=== PATIENT | male | born 1950 | race Caucasian/White ===

== ENCOUNTER 2017-02-27 03:21 | Emergency (ER) | payer MEDICARE, OTHER ==
[2017-02-27] MEDS ORDERED: Lidocaine 2% 20ml Vial ONE (03:42)
[2017-02-27] MEDS: Lidocaine 2% 20ml Vial IP ONE (03:50)
[2017-02-27] MEDS: DIPH,PERTUSS(ACELL),TET VAC/PF 0.5 ML DISP.SYRIN IM ONE (04:10)
--- NOTE | 2017-02-27 04:45 | ED Physician Documentation ---
General Adult - HISTORIAN Historian: patient - HPI Stated Complaint: R GREAT TOE INJ Chief Complaint: Laceration/Recheck/Suture Additional Information: Walking, stubbed toe, then realized bedsheets were bloody and could not stop bleeding with bandages. Onset: hours (1) Timing: still present Severity: moderate Modifying Factors: bleeding Context: walking, kicked box Quality: moderate bleeding Location: cuticle/nail base Further Comments: no Last known Well Code/Unknown Code: Unknown - ROS CONST: no problems EYES/ENT: none CVS/RESP: none GI/: none MS/SKIN/LYMPH: other (minimal pain right great toe secondary to diabetic neuropathy) NEURO/PSYCH: denies: headache, fainting, dizziness, tingling, numbness, difficulty walking, difficulty with speech, anxiety, depression - PAST HX Past History: other (cad) Other History: diabetes Type 2 Surgeries/Procedures: cardiac stent, other (ortho) Immunizations: tetanus Allergies/Adverse Reactions: Allergies Allergy/AdvReac Type Severity Reaction Status Date / Time No Known Allergies Allergy Verified 02/27/17 04:06 Home Medications: Ambulatory Orders Medication Instructions Recorded Insulin Aspart [Novolog] 10 unit SQ DIRECTED 03/21/14 Insulin Glargine,Hum.rec.anlog 35 unit SQ HS 03/21/14 [Lantus] Ascorbic Acid [Vitamin C] 500 mg PO D 02/27/17 Cholecalciferol [Vitamin D-3] 1,000 unit PO DAILY 02/27/17 Clopidogrel Bisulfate [Clopidogrel] 75 mg PO D 02/27/17 Gabapentin [Neurontin] 300 mg PO TID 02/27/17 Garlic 1 each PO D 02/27/17 Metformin HCl [Glucophage] 1,[place] [address] 02/27/17 Multivitamin [Tab-A-Yordan] 1 each PO DAILY 02/27/17 - SOCIAL HX Smoking History: non-smoker Alcohol Use: occasionally Drug Use: none - FAMILY HX Family History: Yes (noncontributory) - VITAL SIGNS Vital Signs: Vital Signs Temp Pulse Resp BP Pulse Ox 98.3 F 83 18 125/58 94 02/27/17 03:21 02/27/17 03:21 02/27/17 03:21 02/27/17 03:21 02/27/17 03:21 - REVIEWED ASSESSMENTS Nursing Assessment Reviewed: Yes Vitals Reviewed: Yes Procedures Wound Location: other (right great toe) Wound Length: 2.5 cm Wound's Depth, Shape: into muscle, linear Wound Explored: no foreign body removed Irrigated w/ Saline (ccs): 1,000 Betadine Prep?: No (surgical soap prep) Anesthesia: 2% Lidocaine, Other (nerve block 6 cc of 2% lidocaine to each side of toe with 25 G needle) Volume of Anesthetic: 12 cc totaql Wound Debrided: none Wound Repaired With: sutures Suture Size/Type: 3:0, nylon Number of Sutures: 12 Layer Closure?: No Sterile Dressing Applied?: Yes Splint Applied?: No Sling Applied?: No Progress - Results/Orders Results/Orders: no testing ordered - Progress Progress: Pt. was stable entire time in er. Critical Care Note - Critical Care Note Total Time (mins): 0 ED Results Lab/Radiology - Lab Results Lab Results: none ordered - Radiology Radiology Impressions: none taken - Orders Orders: ED Orders Category Date Time Status Diph,Pertuss(Acell),Tet Vac/Pf [Adacel] Med 02/27/17 03:49 Discontinued 0.5 ml IM .ONCE ONE Lidocaine 2% 20ml Vial [Xylocaine] Med 02/27/17 03:49 Discontinued 20 mg IP NOW ONE Lidocaine 2% 20ml Vial [Xylocaine] Med 02/27/17 03:42 Discontinued 400 mg .ROUTE .STK-MED ONE General Adult Physical Exam - PHYSICAL EXAM GENERAL APPEARANCE: mild distress EENT: eye inspection normal, ENT inspection normal, pharynx normal, no signs of dehydration, YUNIEL, no nystagmus, TM's nml NECK: normal inspection, thyroid normal, supple RESPIRATORY: no resp distress, chest non-tender, breath sounds normal CVS: reg rate & rhythm, heart sounds normal, equal pulses ABDOMEN: soft, no organomegaly, normal bowel sounds, no abdominal bruit, no distension, non-tender BACK: normal inspection, no CVA tenderness SKIN: other (2.5 cm linear deep laeration at cuticle extending 0.5 cm medially, 1 cm laterally) EXTREMITIES: non-tender, no edema, other (no cyanosis, no erythema) NEURO: oriented X3, CN's nml as tested, motor nml, sensation nml, mood/affect nml, cognition normal Discharge Clincal Impression: Toe laceration Qualifiers: Encounter type: initial encounter Toe: great toe Damage to nail status: with damage Foreign body presence: without foreign body Laterality: right Qualified Code(s): S91.211A - Laceration without foreign body of right great toe with damage to nail, initial encounter Referrals: Primary Doctor,No [Primary Care Provider] - 2 Days Additional Instructions: Leave bandage on for 24 hours. Then wash daily with soap and water, dry, apply MICKEY and a band aid. Sutures out in 10 days. No soaking or swimming for 10 days. Home Medications: Ambulatory Orders Insulin Aspart [Novolog] 10 unit SQ DIRECTED 03/21/14 Insulin Glargine,Hum.rec.anlog [Lantus] 35 unit SQ HS 03/21/14 Ascorbic Acid [Vitamin C] 500 mg PO D 02/27/17 Cholecalciferol [Vitamin D-3] 1,000 unit PO DAILY 02/27/17 Clopidogrel Bisulfate [Clopidogrel] 75 mg PO D 02/27/17 Gabapentin [Neurontin] 300 mg PO TID 02/27/17 Garlic 1 each PO D 02/27/17 Metformin HCl [Glucophage] 1,[place] [address] 02/27/17 Multivitamin [Tab-A-Yordan] 1 each PO DAILY 02/27/17 Comments: Discharged with script for keflex 500 mf 2 p.o. bid x 1 week. Condition: Stable Disposition: 01 HOME, SELF-CARE Decision to Admit: NO Decision Time: 04:47
[2017-02-27 04:57] VITALS: BP 119/78
== END 2017-02-27 04:50 | disposition home or self-care (01) ==
LOC: ED 03:21
DX: S91.211A Laceration without foreign body of right great toe with damage to nail, initial encounter (principal); X58.XXXA Exposure to other specified factors, initial encounter; Y93.9 Activity, unspecified; Y99.9 Unspecified external cause status
CPT/HCPCS: 12001; 90471; 90715; 99283

== ENCOUNTER 2017-02-27 20:55 | Emergency (ER) | payer MEDICARE, OTHER ==
[2017-02-27] MEDS: SILVER NITRATE APPLICATOR STICK TP SCH (21:29)
--- NOTE | 2017-02-27 21:38 | ED Physician Documentation ---
Lower Extremity Injury - HISTORIAN Historian: patient - HPI Stated Complaint: bleeding right great toe Chief Complaint: Lower Extremity Injury Additional Information: toe started bleeding after pt. got home from repair Onset: hours (3) Where: home Severity: moderate Context: other (walking) Associated Symptoms:: denies: tingling, numbness distally, swelling, snapping sensation, popping sensation, unable to bear weight, became dizzy, seizure, fainted Modifying Factors:: none - ROS CONST: no problems CVS/RESP: none GI/: denies: problems urinating, nausea, vomiting MS/SKIN/LYMPH: none NEURO: denies: headache, head injury, anxiety - PAST HX Past History: diabetes Type 2, other (cad) Immunizations: referred to PCP Allergies/Adverse Reactions: Allergies Allergy/AdvReac Type Severity Reaction Status Date / Time No Known Allergies Allergy Verified 02/27/17 21:30 Home Medications: Ambulatory Orders Medication Instructions Recorded Insulin Aspart [Novolog] 10 unit SQ DIRECTED 03/21/14 Insulin Glargine,Hum.rec.anlog 35 unit SQ HS 03/21/14 [Lantus] Ascorbic Acid [Vitamin C] 500 mg PO D 02/27/17 Cholecalciferol [Vitamin D-3] 1,000 unit PO DAILY 02/27/17 Clopidogrel Bisulfate [Clopidogrel] 75 mg PO D 02/27/17 Gabapentin [Neurontin] 300 mg PO TID 02/27/17 Garlic 1 each PO D 02/27/17 Metformin HCl [Glucophage] 1,[place] [address] 02/27/17 Multivitamin [Tab-A-Yordan] 1 each PO DAILY 02/27/17 - SOCIAL HX Smoking History: non-smoker Alcohol Use: none Drug Use: none - FAMILY HX Family History: no significant history - VITAL SIGNS Vital Signs: Vital Signs Temp Pulse Resp BP Pulse Ox 98.3 F 76 18 121/66 96 02/27/17 20:56 02/28/17 02:59 02/28/17 02:59 02/28/17 02:59 02/28/17 02:59 - REVIEWED ASSESSMENTS Nursing Assessment Reviewed: Yes Vitals Reviewed: Yes Progress - Results/Orders Results/Orders: no testing taken - Progress Progress: toenail bed cauterized with silver nitrate Critical Care Note - Critical Care Note Total Time (mins): 0 ED Results Lab/Radiology - Lab Results Lab Results: none taken - Radiology Radiology Impressions: none taken - Orders Orders: ED Orders Category Date Time Status Diph,Pertuss(Acell),Tet Vac/Pf [Adacel] Med 02/27/17 22:02 Discontinued 0.5 ml IM .STK-MED ONE Silver Nitrate Applicator Med 02/27/17 22:00 Discontinued 6 each TP 1T Lower Extremities Injury Phy - Physical Exam General Appearance: mild distress Hips: bilateral hip: non-tender, normal inspection, normal range of motion, no evidence of injury Legs: bilateral: non-tender, normal inspection, normal range of motion, no evidence of injury Knees: bilateral: non-tender, normal inspection, normal range of motion, no evidence of injury Ankle: bilateral: non-tender, normal inspection, normal range of motion, no evidence of injury Foot: right foot: nail injury (nailbed bleedin, sutures intact and nonbleeding) DTR - Lower Extremities: knee (R): 2+, knee (L): 2+, ankle (R): 2+, ankle (L): 2 + Ligaments: pain on anterior drawer Gait: normal Neuro/Vascular/Tendon: no vascular compromise, motor nml, sensation nml Head/ENT: nml inspection, pharynx nml Neck/Back: nml inspection, non-tender Resp/CVS: chest non-tender, breath sounds nml, heart sounds nml, no resp. distress, lungs clear, reg. rate & rhythm Abdomen: non-tender, pelvis stable Discharge Clincal Impression: NAILBED BLEEDING Referrals: Primary Doctor,No [Primary Care Provider] - 2 Days Additional Instructions: Keep pressure dressing in place for next 36 hours. Remove Thursday AM. Proceed with daily cleaning/triple antibiotic ointment and bandage as per yesterday's discharge instructions. Home Medications: Ambulatory Orders Insulin Aspart [Novolog] 10 unit SQ DIRECTED 03/21/14 Insulin Glargine,Hum.rec.anlog [Lantus] 35 unit SQ HS 03/21/14 Ascorbic Acid [Vitamin C] 500 mg PO D 02/27/17 Cholecalciferol [Vitamin D-3] 1,000 unit PO DAILY 02/27/17 Clopidogrel Bisulfate [Clopidogrel] 75 mg PO D 02/27/17 Gabapentin [Neurontin] 300 mg PO TID 02/27/17 Garlic 1 each PO D 02/27/17 Metformin HCl [Glucophage] 1,[place] [address] 02/27/17 Multivitamin [Tab-A-Yordan] 1 each PO DAILY 02/27/17 Comments: discharged in stable condition, no new medications Condition: Stable Disposition: 01 HOME, SELF-CARE Decision to Admit: NO Decision Time: 21:38
[2017-02-27 21:44] VITALS: BP 121/66
[2017-02-27] MEDS ORDERED: DIPH,PERTUSS(ACELL),TET VAC/PF 0.5 ML DISP.SYRIN IM ONE (22:02)
== END 2017-02-27 21:44 | disposition home or self-care (01) ==
LOC: ED 20:55
DX: S91.211A Laceration without foreign body of right great toe with damage to nail, initial encounter (principal); X58.XXXA Exposure to other specified factors, initial encounter; Y93.9 Activity, unspecified; Y99.9 Unspecified external cause status
CPT/HCPCS: 90715; 99283

== ENCOUNTER 2017-05-17 10:15 | Emergency (ER) | payer MEDICARE, OTHER ==
--- NOTE | 2017-05-17 10:52 | ED Physician Documentation ---
Male Genitourinary Problems - HISTORIAN Historian: patient - HPI Stated Complaint: blood in urine Chief Complaint: Male Genitourinary Problems Additional Information: painless hematuria Onset: days ago (2) Duration: continues in ED Context: denies: drug use, lifting, trauma, recent surgery Severity: mild, moderate Further Comments: yes (had painless hematuria yrs ago in -resolved spontaneously. pt is on plavix) - Associated Symptoms Problems Urinating: none, blood in urine, frequent urination. denies: burning w / urination, pain w/ urination Penile Pain: No Penile Swelling: No - Sexual History Sexual History: non-contributory - ROS CONST: none GI/: denies: nausea, vomiting, abdominal pain MS/SKIN/LYMPH: none CVS/RESP: none EYES/ENT: none - PAST HX Past History: diabetes Type 2, other (peripheral vascular disease) Surgeries/Procedures: other (stentrt l;eg feet diverticulitis) Allergies/Adverse Reactions: Allergies Allergy/AdvReac Type Severity Reaction Status Date / Time No Known Allergies Allergy Verified 05/17/17 10:33 Home Medications: Ambulatory Orders Medication Instructions Recorded Insulin Aspart [Novolog] 20 - 40 unit SQ AC15 03/21/14 Insulin Glargine,Hum.rec.anlog 40 - 60 unit SQ HS 03/21/14 [Lantus] Ascorbic Acid [Vitamin C] 500 mg PO D 02/27/17 Cholecalciferol [Vitamin D-3] 1,000 unit PO DAILY 02/27/17 Clopidogrel Bisulfate [Clopidogrel] 75 mg PO D 02/27/17 Gabapentin [Neurontin] 300 mg PO TID 02/27/17 Garlic 1 each PO D 02/27/17 Metformin HCl [Glucophage] 500 mg PO AM 02/27/17 Multivitamin [Tab-A-Yordan] 1 each PO DAILY 02/27/17 - SOCIAL HX Smoking History: greater than 1 pack/day Alcohol Use: occasionally Drug Use: none - FAMILY HX Family History: other (father ca lung age 98 mother 50,s [employer]) - VITAL SIGNS Vital Signs: Vital Signs Temp Pulse Resp BP Pulse Ox 97.6 F 113 H 16 99/53 99 05/17/17 10:35 05/17/17 10:35 05/17/17 10:35 05/17/17 10:35 05/17/17 10:35 - REVIEWED ASSESSMENTS Nursing Assessment Reviewed: Yes Vitals Reviewed: Yes ED Results Lab/Radiology - Lab Results Lab Results: Lab Results 05/17/17 05/17/17 05/17/17 11:00 11:00 11:00 WBC 8.60 K/ul K/ul (4.00-12.00) RBC 4.78 M/ul M/ul (3.90-5.20) Hgb 14.0 g/dL g/dL (12.0-18.0) Hct 41.3 % % (37.0-53.0) MCV 86.3 fl fl (80.0-100.0) MCH 29.3 pg pg (28.0-34.0) MCHC 33.9 g/dL g/dL (30.0-36.0) RDW 13.5 % % (11.3-14.3) Plt Count 208 K/mm3 K/mm3 (130-400) Neut % (Auto) 68.8 % % (39.0-79.0) Lymph % (Auto) 17.5 % % (16.0-50.0) [place] % (Auto) 5.4 % % (0.0-11.0) Eos % (Auto) 5.0 % % (0.0-6.8) Baso % (Auto) 0.9 (0.0-1.5) Neut # (Auto) 5.9 # k/uL # k/uL (1.4-7.7) Lymph # (Auto) 1.5 # k/uL # k/uL (0.6-4.0) [place] # (Auto) 0.5 # k/uL # k/uL (0.0-0.9) Eos # (Auto) 0.4 # k/uL # k/uL (0.0-0.6) Baso # (Auto) 0.1 # k/uL # k/uL (0.0-0.5) Reactive Lymphs % 2.5 % % (0.0-5.0) Reactive Lymphs # 0.2 # k/uL # k/uL (0.0-0.8) PT 10.0 Seconds Seconds (9.4-11.6) INR 0.95 (0.9-1.2) Sodium 135 mmol/L L mmol/L (137-145) Potassium 4.0 mmol/L mmol/L (3.5-5.1) Chloride 96 mmol/L L mmol/L (98-107) Carbon Dioxide 30 mmol/L mmol/L (22-30) BUN 11 mg/dL mg/dL (9-20) Creatinine 0.90 mg/dL mg/dL (0.66-1.25) Estimated Creat Clear 75 Est GFR ( Amer) > 60 (60 - ) Est GFR (Non-Af Amer) > 60 (60 - ) Glucose 146 mg/dL H mg/dL (74-106) Calcium 9.0 mg/dL mg/dL (8.4-10.2) Total Bilirubin 0.3 mg/dL mg/dL (0.2-1.3) AST 19 U/L U/L (15-46) ALT 33 U/L U/L (13-69) Alkaline Phosphatase 93 U/L U/L (38-126) Total Protein 7.3 g/dL g/dL (6.3-8.2) Albumin 3.8 g/dL g/dL (3.5-5.0) - Radiology Radiology Impressions: RADIOLOGISTS REPORTS 6.4 MM RT RENAL STONE - Orders Orders: ED Orders Category Date Time Status KIDNEY STONE PROTOCOL [CT ABD & PELVIS W/O CON] Stat Exams 05/17/17 Completed CBC/PLATELET/DIFF Routine Lab 05/17/17 11:00 Completed CMP Routine Lab 05/17/17 11:00 Completed PT-INR Routine Lab 05/17/17 11:00 Completed UA [URINALYSIS] Routine Lab 05/17/17 Ordered Chem Sticks Med 05/17/17 10:20 Discontinued 1 each NOW ONE Male Genitourinary Problems - EXAM General Appearance: no acute distress. No: anxious, lethargic Abdomen: non-tender EENT: no signs of dehydration Neck: nml inspection. No: lymphadenopathy Respiratory: no resp distress, chest non-tender, breath sounds normal CVS: reg rate & rhythm Back: non-tender Extremities: normal range of motion Neuro/Psych: oriented X3, motor nml, sensation nml, mood/affect nml Skin: warm/dry, normal color. No: cyanosis, diaphoresis, jaundice, mottled Discharge Clincal Impression: PAINLESS HEMATURIA, 6.4 MM RT RENAL LITHIASIS Referrals: Primary Doctor,No [Primary Care Provider] - 2 Days Comments: PT WILL TAKE REPORTS TO [facility] IN THE AM Condition: Good Disposition: 01 HOME, SELF-CARE Decision to Admit: NO Decision Time: 12:29
[2017-05-17 11:21] LABS: BASOPHILS % 0.9 (0.0-1.5); MEAN CORPUSCULAR HEMOGLOBIN 29.3 pg (28.0-34.0); MEAN CORPUSCULAR VOLUME 86.3 fl (80.0-100.0); MONOCYTES % 5.4 % (0.0-11.0); NEUTROPHILS # 5.9 # k/uL (1.4-7.7)
[2017-05-17 11:25] LABS: eGFR (African) > 60; eGFR (Non-African) > 60
--- NOTE | 2017-05-17 12:22 | Diagnostic Imaging Report ---
[facility] [address] [facility] [address] [place], [place]. [address] Report Submission Date: May 17, 2017 12:10:32 PM CDT Patient Study Name: BARB PEREZ Date: May 17, 2017 11:41:54 AM CDT Modality Type: CT\SR Gender: M Description: CT ABD & PELVIS W/O CO : 46 Institution: [facility] Physician: CORNELL HEATH - [place] HISTORY: 66-year-old male with painless hematuria. COMPARISON: None available TECHNIQUE: Helical CT images of the abdomen and pelvis were performed without contrast. Sagittal and coronal reformatted images were obtained. FINDINGS: Urinary tract: There is a right renal pelvis 6.4 mm calculus (image 147, series 2). Other calcifications in the bilateral kidneys are likely related to vascular calcifications rather than nonobstructing renal calculi. No ureteral calculi, hydronephrosis, or hydroureter bilaterally. There is an exophytic left renal inferior pole cyst. No urinary bladder calculi. The prostate is moderately enlarged. There are seminal vesicle dense calcifications. Miscellaneous: There is hyperexpansion of the lung bases. The noncontrast liver, spleen, pancreas, gallbladder, adrenal glands are unremarkable. No abdominal aortic aneurysm. There are thick atherosclerotic calcifications in the abdominal aorta and major branches. No abnormal bowel dilatation, free air, free fluid, or suspicious adenopathy. The appendix is not dilated and does not appear inflamed. There are degenerative changes of the spine, sacroiliac joints , and hips. IMPRESSION: 1. 6.4 mm right renal pelvis calculus. 2. No ureteral calculi or urinary tract obstruction bilaterally. 3. Moderate prostatic enlargement. 4. Extensive atherosclerotic vascular disease. Electronically signed on May 17, 2017 12:10:32 PM CDT by: Abhinav WING
[2017-05-17 12:39] VITALS: BP 112/64
== END 2017-05-17 12:37 | disposition home or self-care (01) ==
LOC: ED 10:15
DX: R31.9 Hematuria, unspecified (principal); N20.0 Calculus of kidney
CPT/HCPCS: 74176; 80053; 85025; 85610; 99283; S1016

== ENCOUNTER 2017-09-06 18:01 | Emergency (ER) | payer MEDICARE, OTHER ==
--- NOTE | 2017-09-06 19:10 | ED Physician Documentation ---
Foot Injury - HISTORIAN Historian: patient - HPI Stated Complaint: right foot wound Chief Complaint: Foot Injury Additional Information: PT HAS RUPT BLISTER DORSUM RT FOOT-RUPTURED TODAY WHEN TOOK OFF SOCK. HE HAS ADV POORLY CONTROLLED DIABETES AND DIABETIC ULCER RT GREAT TOE WHICH ALSO WAS FX SEVERAL MONTHS AGO AND HAS NON-UNION. THERE IS HEALING ULCER MED ASPECT THIS TOE. HE HAS HAD STENTS IN LT LEG BUT NOR IN RT LEG. HE HAS APPT W/ PODIATRIAST 09-11-17 BUT IS PLANNING TO LEAVE SEPTEMBER 22 FOR 3 MONTH IN [place]. Severity: moderate, severe Associated Symptoms:: tingling, numbness distally Modifying Factors:: other (UNCONTROLLED DIABETES) - ROS CONST: other (THE TOE HAS RECENTLY TURNED PURPLE AND HAS INCREASTEED IN SORENESS ) CVS/RESP: none NEURO: denies: headache, head injury MS/SKIN/LYMPH: other ( ABOVE) - PAST HX Past History: diabetes Type 1, other (RENAL LITHIASIS) - SOCIAL HX Smoking History: less than 1 pack/day Alcohol Use: other (3 SHOTS 2 X PER WEEK) Drug Use: none - FAMILY HX Family History: no significant history - VITAL SIGNS Vital Signs: Vital Signs Temp Pulse Resp BP Pulse Ox 98.1 F 117 H 16 128/73 97 09/06/17 18:22 09/06/17 18:22 09/06/17 18:22 09/06/17 18:22 09/06/17 18:22 - REVIEWED ASSESSMENTS Nursing Assessment Reviewed: Yes Vitals Reviewed: Yes <Alden Dee - Last Filed: 09/06/17 19:04> - VITAL SIGNS Vital Signs: Vital Signs Temp Pulse Resp BP Pulse Ox 98.1 F 117 H 16 128/73 97 09/06/17 18:22 09/06/17 18:22 09/06/17 18:22 09/06/17 18:22 09/06/17 18:22 <Davion Costa - Last Filed: 09/06/17 20:31> - PAST HX Allergies/Adverse Reactions: Allergies Allergy/AdvReac Type Severity Reaction Status Date / Time No Known Allergies Allergy Verified 05/17/17 10:33 Home Medications: Ambulatory Orders Medication Instructions Recorded Insulin Aspart [Novolog] 20 - 40 unit SQ AC15 03/21/14 Insulin Glargine,Hum.rec.anlog 40 - 60 unit SQ HS 03/21/14 [Lantus] Ascorbic Acid [Vitamin C] 500 mg PO D 02/27/17 Cholecalciferol [Vitamin D-3] 1,000 unit PO DAILY 02/27/17 Clopidogrel Bisulfate [Clopidogrel] 75 mg PO D 02/27/17 Gabapentin [Neurontin] 300 mg PO TID 02/27/17 Garlic 1 each PO D 02/27/17 Metformin HCl [Glucophage] 500 mg PO AM 02/27/17 Multivitamin [Tab-A-Yordan] 1 each PO DAILY 02/27/17 Cephalexin [Keflex] 500 mg PO Q12H #20 capsule 09/06/17 Cyclobenzaprine HCl [Flexeril] 10 mg PO QD #20 tablet 09/06/17 Progress - Results/Orders Results/Orders: [facility]ARE [facility] [address] <Alden Dee - Last Filed: 09/06/17 19:04> - Progress Progress: Follow up with primary provider or vascular specialist as soon as possible. Rx Keflex 500 mg. Take one by mouth every 12 hrs for 10 days. Rx Flexeril 10 mg. Take one every 8 hrs as needed for muscle spasm. <Davion Costa - Last Filed: 09/06/17 20:31> ED Results Lab/Radiology - Orders Orders: ED Orders Category Date Time Status TOES 2 VIEWS OR MORE [RAD] Stat Exams 09/06/17 Taken BLOOD CULTURE Stat Lab 09/06/17 Ordered CBC/PLATELET/DIFF Routine Lab 09/06/17 Ordered CMP Routine Lab 09/06/17 Ordered URINALYSIS Routine Lab 09/06/17 Ordered <Alden Dee - Last Filed: 09/06/17 19:04> - Lab Results Lab Results: Lab Results 09/06/17 09/06/17 19:24 19:24 WBC 10.40 K/ul K/ul (4.00-12.00) RBC 4.89 M/ul M/ul (3.90-5.20) Hgb 14.6 g/dL g/dL (12.0-18.0) Hct 42.0 % % (37.0-53.0) MCV 85.9 fl fl (80.0-100.0) MCH 29.8 pg pg (28.0-34.0) MCHC 34.7 g/dL g/dL (30.0-36.0) RDW 13.9 % % (11.3-14.3) Plt Count 225 K/mm3 K/mm3 (130-400) Neut % (Auto) 75.3 % % (39.0-79.0) Lymph % (Auto) 11.3 % L % (16.0-50.0) [place] % (Auto) 6.4 % % (0.0-11.0) Eos % (Auto) 5.1 % % (0.0-6.8) Baso % (Auto) 0.7 (0.0-1.5) Neut # (Auto) 7.8 # k/uL H # k/uL (1.4-7.7) Lymph # (Auto) 1.2 # k/uL # k/uL (0.6-4.0) [place] # (Auto) 0.7 # k/uL # k/uL (0.0-0.9) Eos # (Auto) 0.5 # k/uL # k/uL (0.0-0.6) Baso # (Auto) 0.1 # k/uL # k/uL (0.0-0.5) Reactive Lymphs % 1.3 % % (0.0-5.0) Reactive Lymphs # 0.1 # k/uL # k/uL (0.0-0.8) Sodium 137 mmol/L mmol/L (136-145) Potassium 4.5 mmol/L mmol/L (3.5-5.1) Chloride 97 mmol/L L mmol/L (98-107) Carbon Dioxide 25 mmol/L mmol/L (22-30) BUN 10 mg/dL mg/dL (9-20) Creatinine 0.70 mg/dL mg/dL (0.66-1.25) Estimated Creat Clear 95 Est GFR ( Amer) > 60 (60 - ) Est GFR (Non-Af Amer) > 60 (60 - ) Glucose 254 mg/dL H mg/dL (74-106) Calcium 9.3 mg/dL mg/dL (8.4-10.2) Total Bilirubin 1.0 mg/dL mg/dL (0.2-1.3) AST 25 U/L U/L (15-46) ALT 29 U/L U/L (13-69) Alkaline Phosphatase 136 U/L H U/L (38-126) Total Protein 7.8 g/dL g/dL (6.3-8.2) Albumin 4.2 g/dL g/dL (3.5-5.0) - Orders Orders: ED Orders Category Date Time Status Apply occlusive dressing D Care 09/06/17 20:[address] IV Lock 1T Care 09/06/17 19:25 Active TOES 2 VIEWS OR MORE [RAD] Stat Exams 09/06/17 Taken BLOOD CULTURE Stat Lab 09/06/17 Ordered CBC/PLATELET/DIFF Routine Lab 09/06/17 19:24 Completed CMP Routine Lab 09/06/17 19:24 Completed URINALYSIS Routine Lab 09/06/17 Ordered Cephalexin [Keflex] Med 09/06/17 20:17 Once 500 mg PO NOW ONE Cyclobenzaprine HCl [Flexeril] Med 09/06/17 20:18 Once 10 mg PO NOW ONE <Davion Costa - Last Filed: 09/06/17 20:31> Foot Injury Physical Exam - Physical Exam General Appearance: mild distress Gait: limited by pain Neuro: sensation nml Vascular: abnml cap refill. No: no vascular compromise Tendons: tendon function nml. No: tendon visualized, injury seen Skin: intact, warm, other (FOOT DESCRIBED) Head/ENT: nml inspection Neck/Back: nml inspection. No: tenderness Resp/CVS: chest non-tender, breath sounds nml, heart sounds nml. No: reg. rate & rhythm, decreased breath sounds Abdomen: non-tender <Alden Dee - Last Filed: 09/06/17 19:04> Discharge <Alden Dee - Last Filed: 09/06/17 19:04> Decision to Admit: NO Decision Time: 20:23 <Davion Costa - Last Filed: 09/06/17 20:31> Clincal Impression: foot injury, vascular insufficiency Prescriptions: Cephalexin [Keflex] 500 mg PO Q12H #20 capsule Cyclobenzaprine HCl [Flexeril] 10 mg PO QD #20 tablet Referrals: Primary Doctor,No [Primary Care Provider] - Condition: Stable Disposition: 01 HOME, SELF-CARE
[2017-09-06 19:34] LABS: BASOPHILS % 0.7 (0.0-1.5); EOSINOPHILS % 5.1 % (0.0-6.8); MEAN CORPUSCULAR HEMOGLOBIN 29.8 pg (28.0-34.0); MEAN CORPUSCULAR VOLUME 85.9 fl (80.0-100.0); MONOCYTES % 6.4 % (0.0-11.0); NEUTROPHILS # 7.8 # k/uL (1.4-7.7)
[2017-09-06 19:53] LABS: eGFR (African) > 60; eGFR (Non-African) > 60
[2017-09-06] MEDS ORDERED: CEPHALEXIN 250 MG CAPSULE PO ONE (20:17)
[2017-09-06] MEDS ORDERED: CYCLOBENZAPRINE HCL 5 MG TABLET PO ONE (20:18)
[2017-09-06 20:42] VITALS: BP 132/76
--- NOTE | 2017-09-07 06:50 | Diagnostic Imaging Report ---
CORNELL HEATH [facility] [address] [facility].[address] [address] Report Submission Date: Sep 06, 2017 6:42:08 PM [employer] Patient Study Name: BARB PEREZ Date: Sep 06, 2017 6:31:38 PM [employer] Modality Type: DX Gender: M Description: LOWER EXTREMITY : 46 Institution: [facility] Physician: CORNELL HEATH Right great toe 3 views History: Pain and swelling. History of fracture. Findings: A chronic appearing nonunited 1st distal phalangeal base fracture is present with mild displacement of the distal fracture fragment. A short 4th metatarsal is observed. 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 Electronically signed on Sep 06, 2017 6:42:08 PM [employer] by: Kalin WING
== END 2017-09-06 20:35 | disposition home or self-care (01) ==
LOC: ED 18:01
DX: E10.621 Type 1 diabetes mellitus with foot ulcer (principal); L97.518 Non-pressure chronic ulcer of other part of right foot with other specified severity; E10.65 Type 1 diabetes mellitus with hyperglycemia; I99.8 Other disorder of circulatory system; F17.210 Nicotine dependence, cigarettes, uncomplicated
CPT/HCPCS: 73660; 80053; 85025; 87040; 87070; 87186; 99282; 99283; S1016

== ENCOUNTER 2017-09-20 12:13 | Emergency (ER) | payer MEDICARE, OTHER ==
--- NOTE | 2017-09-20 12:15 | ED Physician Documentation ---
Abdominal Pain - HISTORIAN Historian: patient - HPI Stated Complaint: abdominal pain Chief Complaint: Abdominal Pain Onset: hours (2) Duration: other (improved ) Timing: better Context: recent trauma (Urinary stent ). denies: out of country travel, bad food Severity: moderate Quality: aching, dull, sharp Associated Symptoms: other (he did removel his stent this am at 9 am ) Exacerbated by: nothing Relieved by: supine Further Comments: yes (He states he had the urinary stent placed and he removed the stent this am 0900. He reports that he did well and even voided after the stent removal with mild blood in urine. He states that lower abdomen pain started about two hours ago and he states it was stabbing and contant. He felt as though he needed to have a bowel movement and he tried 3 times. He tried to call to the urologist can conveyor feeder and no one ever returned his call.) - ROS CONST: no problems GI/: constipation (he feels he is possibly constipated ). denies: problems urinating CVS/RESP: denies: shortness of breath EYES/ENT: none MS/SKIN/LYMPH: none NEURO/PSYCH: none - SOCIAL HX Smoking History: cigarettes Alcohol Use: rarely Drug Use: none - FAMILY HX Family History: none - PAST HX Past History: kidney stones Other History: diabetes Type 2 Immunizations: UTD Home Medications: Ambulatory Orders Medication Instructions Recorded Insulin Aspart [Novolog] 20 - 40 unit SQ AC15 03/21/14 Insulin Glargine,Hum.rec.anlog 40 - 60 unit SQ HS 03/21/14 [Lantus] Ascorbic Acid [Vitamin C] 500 mg PO D 02/27/17 Cholecalciferol [Vitamin D-3] 1,000 unit PO DAILY 02/27/17 Clopidogrel Bisulfate [Clopidogrel] 75 mg PO D 02/27/17 Gabapentin [Neurontin] 300 mg PO TID 02/27/17 Garlic 1 each PO D 02/27/17 Metformin HCl [Glucophage] 500 mg PO AM 02/27/17 Multivitamin [Tab-A-Yordan] 1 each PO DAILY 02/27/17 Cyclobenzaprine HCl [Flexeril] 10 mg PO QD #20 tablet 09/06/17 Allergies/Adverse Reactions: Allergies Allergy/AdvReac Type Severity Reaction Status Date / Time No Known Allergies Allergy Verified 09/20/17 12:40 - VITAL SIGNS Vital Signs: Vital Signs Temp Pulse Resp BP Pulse Ox 98.4 F 121 H 22 196/93 96 09/20/17 12:25 09/20/17 12:25 09/20/17 12:25 09/20/17 12:25 09/20/17 12:25 - REVIEWED ASSESSMENTS Nursing Assessment Reviewed: Yes Vitals Reviewed: Yes Progress - Progress Progress: 1300: states back pain is 2 and lower abdominal pain is resolved. DG ED Results Lab/Radiology - Lab Results Lab Results: Lab Results 09/20/17 09/20/17 12:31 12:31 WBC 12.00 K/ul K/ul (4.00-12.00) RBC 5.03 M/ul M/ul (3.90-5.20) Hgb 14.8 g/dL g/dL (12.0-18.0) Hct 42.9 % % (37.0-53.0) MCV 85.3 fl fl (80.0-100.0) MCH 29.3 pg pg (28.0-34.0) MCHC 34.4 g/dL g/dL (30.0-36.0) RDW 13.5 % % (11.3-14.3) Plt Count 325 K/mm3 K/mm3 (130-400) Neut % (Auto) 80.5 % H % (39.0-79.0) Lymph % (Auto) 10.5 % L % (16.0-50.0) [place] % (Auto) 4.3 % % (0.0-11.0) Eos % (Auto) 2.1 % % (0.0-6.8) Baso % (Auto) 1.1 (0.0-1.5) Neut # (Auto) 9.7 # k/uL H # k/uL (1.4-7.7) Lymph # (Auto) 1.3 # k/uL # k/uL (0.6-4.0) [place] # (Auto) 0.5 # k/uL # k/uL (0.0-0.9) Eos # (Auto) 0.2 # k/uL # k/uL (0.0-0.6) Baso # (Auto) 0.1 # k/uL # k/uL (0.0-0.5) Reactive Lymphs % 1.5 % % (0.0-5.0) Reactive Lymphs # 0.2 # k/uL # k/uL (0.0-0.8) Sodium 135 mmol/L L mmol/L (136-145) Potassium 3.6 mmol/L mmol/L (3.5-5.1) Chloride 94 mmol/L L mmol/L (98-107) Carbon Dioxide 26 mmol/L mmol/L (22-30) BUN 16 mg/dL mg/dL (9-20) Creatinine 0.80 mg/dL mg/dL (0.66-1.25) Estimated Creat Clear 83 Est GFR ( Amer) > 60 (60 - ) Est GFR (Non-Af Amer) > 60 (60 - ) Glucose 302 mg/dL H mg/dL (74-106) Calcium 9.5 mg/dL mg/dL (8.4-10.2) Total Bilirubin 1.0 mg/dL mg/dL (0.2-1.3) AST 28 U/L U/L (15-46) ALT 24 U/L U/L (13-69) Alkaline Phosphatase 147 U/L H U/L (38-126) Total Protein 7.9 g/dL g/dL (6.3-8.2) Albumin 4.2 g/dL g/dL (3.5-5.0) - Radiology Radiology Impressions: Examination: Obstruction series History: PT STATES LOWER ABDOMINAL PAIN X 2 HRS, LAST BM WAS THIS MORNING (Hx) Findings: 2 views obtained of the abdomen. No abnormal dilation of the large or small bowel. Air and stool throughout the large bowel. Pain calcification projecting over the renal fossa bilaterally. Lumbar spine degenerative spurring. Pelvic vascular calcifications. Impression: No obstruction. Renal calcifications. Electronically signed on Sep 20, 2017 1:03:26 PM TAX ASSOCIATE by: Alden Sarkar - Orders Orders: ED Orders Category Date Time Status Place IV Lock 1T Care 09/20/17 12:28 Active ABDOMEN 1VIEW [RAD] Stat Exams 09/20/17 Taken CBC/PLATELET/DIFF Routine Lab 09/20/17 12:31 Completed CMP Routine Lab 09/20/17 12:31 Completed URINALYSIS Routine Lab 09/20/17 Ordered URINE CULTURE Stat Lab 09/20/17 13:10 Ordered 0.9 % Sodium Chloride [Normal Saline] 1,000 ml Med 09/20/17 12:30 Ordered IV Q10H Abdominal Pain Physical Exam - Physical Exam General Appearance: no acute distress, alert EENT: eye inspection normal, ENT inspection normal NECK: normal inspection RESPIRATORY: no resp distress, chest non-tender, breath sounds normal CVS: reg rate & rhythm, heart sounds normal, equal pulses, no murmur ABDOMEN: soft, no organomegaly, normal bowel sounds, no distension, guarding ( lower abdomen ) BACK: other (mild pain lower mid back with palpation although he states is improved ) SKIN: warm/dry, normal color EXTREMITIES: non-tender, normal range of motion, no evidence of injury, no edema NEURO: oriented X3, CN's nml as tested, motor nml, sensation nml, mood/affect nml Vital Signs: Vital Signs Temp Pulse Resp BP Pulse Ox 98.4 F 121 H 22 196/93 96 09/20/17 12:25 09/20/17 12:25 09/20/17 12:25 09/20/17 12:25 09/20/17 12:25 Discharge Clincal Impression: Abdominal pain Qualifiers: Abdominal location: periumbilical Qualified Code(s): R10.33 - Periumbilical pain Referrals: Primary Doctor,No [Primary Care Provider] - 2 Days Additional Instructions: 1. Start Miralax due to gas and stool on xray 2. Increase fluids 3. Monitor urine - notify urologist can conveyor feeder for any concerns 4. Return to ER for any change in pain, urinary output, fever or concerns 5. Increase fiber Condition: Stable Disposition: 01 HOME, SELF-CARE Decision to Admit: NO Date of Decison to Admit: 09/20/17 Decision Time: 13:29
[2017-09-20] MEDS ORDERED: 0.9 % SODIUM CHLORIDE 1,000 ML IV ONE (12:34)
[2017-09-20] MEDS: 0.9 % SODIUM CHLORIDE 1,000 ML IV SCH (12:36)
[2017-09-20 12:54] LABS: BASOPHILS % 1.1 (0.0-1.5); EOSINOPHILS % 2.1 % (0.0-6.8); MEAN CORPUSCULAR HEMOGLOBIN 29.3 pg (28.0-34.0); MEAN CORPUSCULAR VOLUME 85.3 fl (80.0-100.0); MONOCYTES % 4.3 % (0.0-11.0); NEUTROPHILS # 9.7 # k/uL (1.4-7.7); eGFR (African) > 60; eGFR (Non-African) > 60
--- NOTE | 2017-09-20 13:24 | Diagnostic Imaging Report ---
ALEKSEY WEST~ [facility] [address] [facility] [address] [place], [place]. [address] ~ ~ ~ ~ Report Submission Date: Sep 20, 2017 1:03:26 PM KETTLE OPERATOR HEAD Patient ~ Study Name: BARB PEREZ ~ Date: Sep 20, 2017 12:41:49 PM KETTLE OPERATOR HEAD ~ Modality Type: DX Gender: M ~ Description: ABDOMEN : 46 ~ Institution: [facility] Physician: ALEKSEY WEST ~ ~ ~ Examination: Obstruction series History: PT STATES LOWER ABDOMINAL PAIN X 2 HRS, LAST BM WAS THIS MORNING (Hx) Findings: 2 views obtained of the abdomen. No abnormal dilation of the large or small bowel. Air and stool throughout the large bowel. Pain calcification projecting over the renal fossa bilaterally. Lumbar spine degenerative spurring. Pelvic vascular calcifications. Impression: No obstruction. Renal calcifications. ~ Electronically signed on Sep 20, 2017 1:03:26 PM KETTLE OPERATOR HEAD by: Alden WING
[2017-09-20 13:47] VITALS: BP 184/82
[2017-09-21 06:52] LABS: APPEARANCE,URINE CLOUDY (CLEAR); COLOR,URINE RED (YELLOW)
[2017-09-21 06:53] LABS: OCCULT BLOOD,URINE 3+ (NEGATIVE); UROBILINOGEN URINE 0.2 Eu (0.2-1.0)
== END 2017-09-20 13:34 | disposition home or self-care (01) ==
LOC: ED 12:13
DX: R10.33 Periumbilical pain (principal)
CPT/HCPCS: 74018; 80053; 81002; 85025; 87086; J7030; 96365; 99283; S1016